=== PATIENT | male | born 1955 | race Native Hawaiian/Other Pacific Islander ===

== ENCOUNTER 2017-09-10 03:13 | Emergency (ER) | payer OTHER ==
[~2017-09-10] VITALS: Ht 160 cm; Wt 63.5 kg
[~2017-09-10 03:13] MED LIST: ACCU CHEK AVIVA; BUDE1AER3 INH; FINA5TAB2 PO; GABA300C2 PO; GEMFIBROZIL PO; GERI TUSSIN DM PO; HYOS0.128 PO; INSUINJP SC; JANUVIA100 MG PO; LORA1TAB17 PO; LORATADINE10 MG PO; METF100038 PO; MILK OF MA400 MG/5 M PO; OMEP20CA PO; PRAVACHOL20 MG PO; PROM25TA52 PO; SEROQUEL100 MG PO; SERT100T PO; TRAM50TA PO; TRAZ100T PO; VENTOLIN INH; ZOFRAN ODT4 MG PO; [UNRECOGNIZED DRUG - OTHER] RE
[2017-09-10 03:23] VITALS: BP 117/71; TEMP 98.4
[2017-09-10 03:41] LABS: PLATELET COUNT 288 K/uL (142-355)
[2017-09-10 03:49] LABS: POTASSIUM 3.9 mmol/L (3.6-5.2)
[2017-09-10] MEDS ORDERED: DONE5TAB PO (05:15)
[2017-09-10] MEDS ORDERED: CITA20TA2 PO (05:16)
[2017-09-10] MEDS ORDERED: NAMENDA5 MG PO (05:23)
[2017-09-10] MEDS ORDERED: PANTOPRAZOLE 40MG TA PO (05:25)
[2017-09-10] MEDS ORDERED: TRAZ50TA36 PO (05:30)
[2017-09-10] MEDS ORDERED: WELLBUTRIN100 M1 PO (05:31)
[2017-09-10] MEDS ORDERED: SERT50TA PO (05:33)
[2017-09-10] MEDS ORDERED: ZIPR20CA PO (05:35)
[2017-09-10] MEDS ORDERED: GABA100C2 PO (05:41)
[2017-09-10] MEDS ORDERED: DIPH25CA90 PO (05:48)
[2017-09-21] MEDS ORDERED: CITA20TA2 PO (20:10)
[2017-09-21] MEDS ORDERED: TRAZ50TA36 PO (20:10)
[2017-09-21] MEDS ORDERED: RISP0.25 PO (20:10)
[2017-09-21] MEDS ORDERED: BUPR150T PO (20:10)
[2017-09-21] MEDS ORDERED: DONE5TAB PO (20:10)
[2017-09-21] MEDS ORDERED: MEMA5TAB PO (20:10)
[2017-12-14] MEDS ORDERED: MEMA5TAB PO (13:48)
[2017-12-14] MEDS ORDERED: ARIPIPRAZOLE5 MG PO (13:50)
[2017-12-14] MEDS ORDERED: MIRTAZAPINE7.5 MG PO (13:51)
[2017-12-14] MEDS ORDERED: MAGN400T4 PO (13:52)
[2017-12-14] MEDS ORDERED: BUSP5TAB2 PO (13:52)
== END 2017-09-10 04:21 | disposition other institution (70) ==
LOC: ED 03:13
DX: Z04.6 Encounter for general psychiatric examination, requested by authority (principal); I10 Essential (primary) hypertension
CPT/HCPCS: 36415; 80053; 81000; 83735; 84100; 85027; 93005; 99285

== ENCOUNTER 2017-12-02 00:02 | Emergency (ER) | payer OTHER ==
[2017-12-01 23:50] VITALS: BP 134/65; TEMP 97.4
[~2017-12-02] VITALS: Ht 157.5 cm; Wt 78.0 kg
[~2017-12-02 00:02] MED LIST changes: +BUPR150T PO; +CITA20TA2 PO; +DIPH25CA90 PO; +DONE5TAB PO; +GABA100C2 PO; +MEMA5TAB PO; +NAMENDA5 MG PO; +PANTOPRAZOLE 40MG TA PO; +RISP0.25 PO; +SERT50TA PO; +TRAZ50TA36 PO; +WELLBUTRIN100 M1 PO; +ZIPR20CA PO
[2017-12-02 00:28] LABS: PLATELET COUNT 309 K/uL (142-355)
[2017-12-02 00:35] LABS: POTASSIUM 4.1 mmol/L (3.6-5.2)
[2017-12-02] MEDS ORDERED: BREO ELLIPTA 101 INH IN (09:00)
[2017-12-02] MEDS ORDERED: ZOLOFT25 MG PO (09:03)
[2017-12-02] MEDS ORDERED: DIPH25CA90 PO (09:05)
[2017-12-02] MEDS ORDERED: JANUVIA100 MG PO (09:07)
[2017-12-02] MEDS ORDERED: PRAVACHOL20 MG PO (09:08)
[2017-12-14] MEDS ORDERED: MEMA5TAB PO (13:48)
[2017-12-14] MEDS ORDERED: ARIPIPRAZOLE5 MG PO (13:50)
[2017-12-14] MEDS ORDERED: MIRTAZAPINE7.5 MG PO (13:51)
[2017-12-14] MEDS ORDERED: MAGN400T4 PO (13:52)
[2017-12-14] MEDS ORDERED: BUSP5TAB2 PO (13:52)
== END 2017-12-02 01:37 | disposition other institution (70) ==
LOC: ED 00:02
DX: R45.6 Violent behavior (principal); Z04.6 Encounter for general psychiatric examination, requested by authority
CPT/HCPCS: 36415; 80053; 85027; 93005; 99285

== ENCOUNTER 2018-11-16 18:42 | Emergency (ER) | payer OTHER ==
[~2018-11-16] VITALS: Ht 157.5 cm; Wt 73.0 kg
[~2018-11-16 18:42] MED LIST changes: +ARIPIPRAZOLE5 MG PO; +BREO ELLIPTA 101 INH IN; +BUSP5TAB2 PO; +MAGN400T4 PO; +MIRTAZAPINE7.5 MG PO; +ZOLOFT25 MG PO
[2018-11-16 19:11] LABS: PLATELET COUNT 356 K/uL (142-355)
[2018-11-16 19:20] LABS: POTASSIUM 4.3 mmol/L (3.6-5.2)
[2018-11-16 20:00] VITALS: BP 165/80; TEMP 97.6
[2018-11-16] MEDS ORDERED: INSUINJP SC (20:40)
[2018-11-16] MEDS ORDERED: LISI5TAB10 PO (20:42)
[2018-11-16] MEDS ORDERED: MELATONIN CR3 MG PO (20:43)
[2018-11-16] MEDS ORDERED: OMEPRAZOLE DR20 MG PO (20:46)
[2018-11-16] MEDS ORDERED: TRAMADOL HYDROC50 MG PO (20:46)
[2018-11-16] MEDS ORDERED: RANITIDINE 150150 MG PO (20:47)
[2018-11-16] MEDS ORDERED: CARAFATE1 GM PO (20:48)
[2018-11-16] MEDS ORDERED: NOVOLIN R100 UNIT/1 SC (20:49)
== END 2018-11-16 20:00 | disposition still patient (30) ==
LOC: ED 18:42
PROVIDERS: Emergency Medicine
DX: R46.89 Other symptoms and signs involving appearance and behavior (principal); E11.9 Type 2 diabetes mellitus without complications; N18.9 Chronic kidney disease, unspecified; Z04.6 Encounter for general psychiatric examination, requested by authority
CPT/HCPCS: 36415; 80053; 81000; 85027; 93005; 99285